=== PATIENT | female | born 1980 | race African-American/Black ===

== ENCOUNTER 2017-03-18 23:52 | Inpatient (IN) | payer MEDICAID, OTHER ==
[~2017-03-18] VITALS: Ht 162.6 cm; Wt 86.2 kg
[2017-03-19 03:59] LABS: BASOPHILS % 0.4 % (0.0-2.0); EOSINOPHILS % 1.2 % (0.0-5.0); HEMATOCRIT. 29.4 % (36.0-48.0); HEMOGLOBIN. 9.4 g/dL (12.0-16.0); LYMPHOCYTES % 39.4 % (20.0-50.0); MEAN CORPUSCULAR HEMOGLOBIN 23.8 pg (28.0-32.0); MEAN CORPUSCULAR VOLUME 74.7 fL (81.0-99.0); MEAN PLATELET VOLUME 8.8 fl (7.4-10.4); MONOCYTES % 6.5 % (2.0-8.0); NEUTROPHILS % 52.5 % (40.0-76.0); PLATELET 247 x1000/uL (130-400); RED BLOOD CELL COUNT 3.94 mill/uL (4.2-5.4); RED CELL DISTRIBUTION WIDTH 20.7 % (11.6-14.6)
[2017-03-19 04:07] LABS: HCG SCREEN NEGATIVE
[2017-03-19 04:14] LABS: CARBON DIOXIDE 23 mEq/L (21-32); CHLORIDE 108 mEq/L (98-107); ETHANOL BLOOD < 10 mg/dL; TROPONIN I 0.04 ng/mL (0.00-0.04)
[2017-03-19 04:58] LABS: CLARITY URINE CLEAR (CLEAR); COLOR URINE YELLOW (YELLOW); GLUCOSE URINE NEGATIVE (NEGATIVE); KETONES URINE NEGATIVE (NEGATIVE); LEUKOCYTE ESTERASE URINE NEGATIVE (NEGATIVE); NITRITE URINE NEGATIVE (NEGATIVE); OCCULT BLOOD URINE NEGATIVE (NEGATIVE); PROTEIN URINE NEGATIVE (NEGATIVE); SPECIFIC GRAVITY URINE 1.009 (1.005-1.030); UROBILINOGEN URINE 0.2 E.U./dL (0.2-1.0)
[2017-03-19 05:17] LABS: BG BASE EXCESS -1.3 mmol/L (-2.0-2.0); BG CARBOXYHEMOGLOBIN 0.6 % (0.5-1.5); BG DEOXYHEMOGLOBIN 1.9 % (0.0-5.0); BG FRACTION INSPIRED OXYGEN 21; BG HCO3 ACT 22.6 mmol/L (22.0-26.0); BG METHEMOGLOBIN 0.3 % (0.0-1.5); BG OXYGEN SATURATION 98.1 % (92.0-98.5); BG OXYHEMOGLOBIN 97.2 % (94.0-97.0); BG PCO2 34.8 mmHg (35.0-45.0); BG PO2 116.2 mmHg (75.0-100.0); BG SAMPLE SITE LEFT RADIAL; BG TOTAL HEMOGLOBIN 10.5 g/dL (12.0-18.0); BG VENT MODE ROOM AIR
[2017-03-19 05:56] LABS: *AMPHETAMINES SCREEN URINE NEGATIVE (NEGATIVE); *BARBITURATES SCREEN URINE NEGATIVE (NEGATIVE); *BENZODIAZEPINES SCREEN URINE NEGATIVE (NEGATIVE); *COCAINE SCREEN URINE NEGATIVE (NEGATIVE); METHADONE URINE SCREEN NEGATIVE (NEGATIVE); OPIATES URINE SCREEN NEGATIVE (NEGATIVE); PHENCYCLIDINE URINE SCREEN NEGATIVE (NEGATIVE)
[2017-03-19 06:30] LABS: CANNABINOID URINE SCREEN NEGATIVE (NEGATIVE)
[2017-03-19 07:04] LABS: AMMONIA 21 uMol/L (<32)
[2017-03-19] MEDS ORDERED: AMMONIA INHALATION 1EA INH ONE (18:45)
[2017-03-19 22:00] VITALS: BP 142/83
[2017-03-19] MEDS ORDERED: ONDANSETRON HCL 4MG/2ML VIAL IV PRN (22:00)
[2017-03-19] MEDS ORDERED: MAGNESIUM/ALUMINUM HYDROXIDE/SIMETHICONE 30ML UDC PO PRN (22:00)
[2017-03-19 22:46] VITALS: BP 142/85
[2017-03-20] VITALS: BP 129/75
[2017-03-20 04:00] VITALS: BP 108/63
[2017-03-20] MEDS: SODIUM CHLORIDE 0.9% INJ 3ML FLUSH IVF SCH ×3 (06:01→22:00)
[2017-03-20] MEDS: ACETAMINOPHEN 325MG TABLET PO PRN (06:54)
[2017-03-20 08:00] VITALS: BP 112/64
[2017-03-20 12:00] VITALS: BP 100/61
[2017-03-20 16:00] VITALS: BP 116/75
[2017-03-20 20:00] VITALS: BP 115/75
[2017-03-21] VITALS: BP 119/83
[2017-03-21 04:00] VITALS: BP 126/79
[2017-03-21] MEDS: SODIUM CHLORIDE 0.9% INJ 3ML FLUSH IVF SCH ×3 (06:00→22:10)
[2017-03-21 08:00] VITALS: BP 126/74
[2017-03-21] MEDS: FERROUS SULFATE 325MG TABLET PO SCH ×3 (09:03→18:00)
[2017-03-21 12:00] VITALS: BP 130/78
[2017-03-21 16:00] VITALS: BP 104/56
[2017-03-21] MEDS: ACETAMINOPHEN 325MG TABLET PO PRN ×2 (18:05→22:14)
[2017-03-21 20:00] VITALS: BP 129/79
[2017-03-22] VITALS: BP 126/69
[2017-03-22 04:00] VITALS: BP 119/75
[2017-03-22] MEDS: SODIUM CHLORIDE 0.9% INJ 3ML FLUSH IVF SCH ×3 (05:21→21:52)
[2017-03-22 07:25] VITALS: BP 120/69
[2017-03-22] MEDS: FERROUS SULFATE 325MG TABLET PO SCH ×3 (08:21→16:38)
[2017-03-22 12:00] VITALS: BP 123/72
[2017-03-22 16:00] VITALS: BP 143/84
[2017-03-22 20:00] VITALS: BP 107/67
[2017-03-23] VITALS (8 sets, daily range): BP systolic 110–134; BP diastolic 59–82
[2017-03-23] MEDS: SODIUM CHLORIDE 0.9% INJ 3ML FLUSH IVF SCH ×3 (07:00→22:53)
[2017-03-23] MEDS: FERROUS SULFATE 325MG TABLET PO SCH ×3 (07:02→18:29)
[2017-03-23] MEDS: NAPROXEN 375MG TABLET PO PRN ×2 (09:31→22:38)
[2017-03-24] VITALS: BP 112/71
[2017-03-24 04:00] VITALS: BP 95/61
[2017-03-24] MEDS: SODIUM CHLORIDE 0.9% INJ 3ML FLUSH IVF SCH ×3 (06:00→21:02)
[2017-03-24] MEDS: NAPROXEN 375MG TABLET PO PRN ×2 (06:00→21:01)
[2017-03-24 08:00] VITALS: BP 119/71
[2017-03-24] MEDS: FERROUS SULFATE 325MG TABLET PO SCH ×3 (08:47→16:51)
[2017-03-24 12:00] VITALS: BP 115/61
[2017-03-24 16:00] VITALS: BP 118/70
[2017-03-24] MEDS: ACETAMINOPHEN 325MG TABLET PO PRN (16:53)
[2017-03-24 20:00] VITALS: BP 111/67
[2017-03-24] MEDS: DULOXETINE HCL 30MG DR CAPSULE PO SCH (21:01)
[2017-03-25] VITALS: BP 114/66
[2017-03-25 04:00] VITALS: BP 114/74
[2017-03-25] MEDS: SODIUM CHLORIDE 0.9% INJ 3ML FLUSH IVF SCH ×3 (06:30→21:16)
[2017-03-25 06:51] LABS: BASOPHILS % 0.5 % (0.0-2.0); EOSINOPHILS % 1.6 % (0.0-5.0); HEMATOCRIT. 28.5 % (36.0-48.0); HEMOGLOBIN. 9.1 g/dL (12.0-16.0); LYMPHOCYTES % 29.6 % (20.0-50.0); MEAN CORPUSCULAR VOLUME 75.2 fL (81.0-99.0); MEAN PLATELET VOLUME 9.1 fl (7.4-10.4); MONOCYTES % 8.3 % (2.0-8.0); PLATELET 202 x1000/uL (130-400); RED BLOOD CELL COUNT 3.79 mill/uL (4.2-5.4); RED CELL DISTRIBUTION WIDTH 21.3 % (11.6-14.6)
[2017-03-25 08:24] VITALS: BP 130/80
[2017-03-25] MEDS: NAPROXEN 375MG TABLET PO PRN ×2 (08:29→21:17)
[2017-03-25] MEDS: FERROUS SULFATE 325MG TABLET PO SCH ×3 (08:29→21:16)
[2017-03-25] MEDS: DULOXETINE HCL 30MG DR CAPSULE PO SCH (08:29)
[2017-03-25 12:01] VITALS: BP 136/89
[2017-03-25] MEDS: ACETAMINOPHEN 325MG TABLET PO PRN (14:28)
[2017-03-25 16:00] VITALS: BP 121/73
[2017-03-25 20:00] VITALS: BP 103/65
[2017-03-26] VITALS (10 sets, daily range): BP systolic 101–128; BP diastolic 60–96
[2017-03-26] MEDS: SODIUM CHLORIDE 0.9% INJ 3ML FLUSH IVF SCH ×3 (06:27→21:41)
[2017-03-26] MEDS: FERROUS SULFATE 325MG TABLET PO SCH ×3 (09:45→16:48)
[2017-03-26] MEDS: DULOXETINE HCL 30MG DR CAPSULE PO SCH (09:46)
[2017-03-26] MEDS: NAPROXEN 375MG TABLET PO PRN (09:46)
[2017-03-26] MEDS: ACETAMINOPHEN 325MG TABLET PO PRN ×2 (11:52→17:34)
[2017-03-27] VITALS (8 sets, daily range): BP systolic 100–113; BP diastolic 63–84
[2017-03-27] MEDS: SODIUM CHLORIDE 0.9% INJ 3ML FLUSH IVF SCH ×2 (06:46→14:00)
[2017-03-27] MEDS: ARIPIPRAZOLE 5MG TABLET PO SCH ×2 (06:47→08:02)
[2017-03-27] MEDS: FERROUS SULFATE 325MG TABLET PO SCH ×3 (08:01→16:59)
[2017-03-27] MEDS ORDERED: DULOXETINE HCL 60MG DR CAPSULE PO SCH (09:00)
[2017-03-27] MEDS: NAPROXEN 375MG TABLET PO PRN (11:52)
== END 2017-03-27 18:27 | disposition home or self-care (01) | DRG 757 ==
LOC: ER 23:52 → 5WST 03-19 19:48 → EDBEDREQTM 03-19 19:49 → EDBEDREQ 03-19 19:49 → ENRESERV 03-19 20:09
PROVIDERS: ADMIT Internal Medicine; ATTEND Internal Medicine
DX: F06.1 Catatonic disorder due to known physiological condition (principal); I50.9 Heart failure, unspecified; D50.9 Iron deficiency anemia, unspecified; F44.9 Dissociative and conversion disorder, unspecified; F29 Unspecified psychosis not due to a substance or known physiological condition
CPT/HCPCS: 36415; 36600; 70450; 80053; 80305; 80307; 80329; 81003; 82140; 82375; 82805; 82962; 83540; 83550; 84439; 84443; 84484; 84703; 85025; 85610; 85651; 86140; 97110; 97162; 97166; 97530; 97535; G0482